=== PATIENT | male | born 1945 | race Caucasian/White ===

== ENCOUNTER → 2017-04-17 | Outpatient (CLI) | payer OTHER | LOC: CAT 12:55 | DX: N28.1 Cyst of kidney, acquired (principal) ==

== ENCOUNTER → 2018-09-18 | Outpatient (CLI) | payer OTHER ==
[~2018-09-18] VITALS: Ht 175.3 cm; Wt 77.1 kg
[~2018-09-18] MED LIST: CALCIUM + VITA1 EACH PO; CENTRUM SILVER1 EAC4 PO; GLUCOSAMIN-CHO1 EACH PO; IBUPROFEN 400400 M2 PO; NORVASC2.5 MG PO; PROTONIX 20 MG20 MG PO
[2018-09-18 12:12] VITALS: BP 160/87
[2018-09-18 12:23] LABS: HEMATOCRIT 41.9 % (42.0-52.0); HEMOGLOBIN 14.4 gm/dL (14.0-18.0); MCH 32.6 pg (26.0-34.0); MCHC 34.5 g/dL (28.0-37.0); MCV 94.6 fL (80.0-100.0); RBC 4.43 mil/uL (4.50-6.00); RDW 13.8 % (10.5-14.5)
[2018-09-18 12:32] LABS: CALCIUM 9.6 mg/dL (8.5-10.1); CREATININE 0.9 mg/dL (0.7-1.3); POTASSIUM 4.5 mmol/L (3.5-5.1)
== END | disposition home or self-care (01) ==
LOC: SPEC 11:44
PROVIDERS: Nuclear Medicine Nuclear Cardiology
DX: K55.1 Chronic vascular disorders of intestine (principal); I70.1 Atherosclerosis of renal artery; I73.9 Peripheral vascular disease, unspecified; I10 Essential (primary) hypertension; G47.33 Obstructive sleep apnea (adult) (pediatric); K86.1 Other chronic pancreatitis; N40.0 Benign prostatic hyperplasia without lower urinary tract symptoms; K21.9 Gastro-esophageal reflux disease without esophagitis; Z98.890 Other specified postprocedural states; Z90.49 Acquired absence of other specified parts of digestive tract; Z96.641 Presence of right artificial hip joint; Z79.899 Other long term (current) drug therapy; Z80.3 Family history of malignant neoplasm of breast; Z80.42 Family history of malignant neoplasm of prostate; Z80.8 Family history of malignant neoplasm of other organs or systems

== ENCOUNTER 2018-10-13 13:09 | Emergency (ER) | payer OTHER ==
[~2018-10-13] VITALS: Ht 172.7 cm; Wt 77.1 kg
[2018-10-13 15:08] LABS: ABSOLUTE NEUTROPHILS 3.7 thou/uL (1.4-8.2); BASOPHILS 0.6 % (0.0-2.0); EOSINOPHILS 1.7 % (0.0-3.0); HEMATOCRIT 36.1 % (42.0-52.0); HEMOGLOBIN 12.4 gm/dL (14.0-18.0); LYMPHOCYTES 21.4 % (24.0-44.0); MCH 32.4 pg (26.0-34.0); MCHC 34.2 g/dL (28.0-37.0); MCV 94.5 fL (80.0-100.0); MONOCYTES 8.5 % (1.0-8.0); PLATELET COUNT 192 thou/uL (150-400); POLYS 67.8 % (36.0-66.0); RBC 3.82 mil/uL (4.50-6.00); RDW 13.7 % (10.5-14.5); WBC 5.4 thou/uL (4.0-11.0)
[2018-10-13 15:14] LABS: ANION GAP 8 mmol/L (7-16); BUN 13 mg/dL (7-18); CALCIUM 8.8 mg/dL (8.5-10.1); CHLORIDE 103 mmol/L (98-107); CO2 29 mmol/L (21-32); CREATININE 0.8 mg/dL (0.7-1.3); GLUCOSE 98 mg/dL (74-106); POTASSIUM 3.8 mmol/L (3.5-5.1); SODIUM 140 mmol/L (136-145)
[2018-10-13 15:24] LABS: DIRECT BILIRUBIN 0.2 mg/dL (<0.1-0.3); SGOT 25 U/L (15-37); SGPT 31 U/L (30-65); TOTAL BILIRUBIN 0.6 mg/dL (<0.1-1.0); TOTAL PROTEIN 6.9 g/dL (6.4-8.2); TROPONIN-I <0.06 ng/mL (<0.06)
[2018-10-13 17:17] LABS: URINE BILIRUBIN NEGATIVE (Negative); URINE BLOOD NEGATIVE (Negative); URINE CLARITY CLEAR; URINE COLOR YELLOW; URINE GLUCOSE-RANDOM* NEGATIVE (Negative); URINE KETONES NEGATIVE (Negative); URINE LEUKOCYTES-REFLEX NEGATIVE (Negative); URINE NITRITE-REFLEX NEGATIVE (Negative); URINE PROTEIN (DIPSTICK) NEGATIVE (Negative); URINE UROBILINOGEN 0.2 E.U./dl (0.2-1.0)
[2018-10-13 18:00] VITALS: BP 151/84
--- NOTE | 2018-10-14 10:43 | EKG ---
[place] [address] [employer] [place] [address] ELECTROCARDIOGRAM REPORT Name: MONIKA HALL Room #: [facility] Pita#: [id number] Admission: 10/13/18 Attend Phys: Discharge: 10/13/18 Date of : 43 Report #: [id number] THIS REPORT FOR: //name// [facility] ED Test Date: 2018-10-13 Test Time: 13:19:32 Pat Name: MONIKA HALL Department: Room: Gender: Bingo Caller: [facility] : 1945 Requested By: Shahana Shoemaker Order Number: [id number] MD: Elier Burton Measurements Intervals [place] Rate: 60 P: -24 OK: 135 QRS: -5 QRSD: 104 T: -8 QT: 414 QTc: 414 Interpretive Statements Sinus arrhythmia Ventricular premature complex Compared to ECG 10/28/2005 11:24:27 Ventricular premature complex(es) now present Electronically Signed On 10-14-2018 10:43:32 CDT by Elier Burton [email or web address] <ELECTRONICALLY SIGNED> By: Elier Burton MD, [facility] 10/14/18 1043 1319 18 Elier Burton MD, FACC /EPI
== END 2018-10-13 18:05 | disposition home or self-care (01) ==
LOC: ER 13:09
PROVIDERS: Emergency Medicine
DX: R55 Syncope and collapse (principal); R53.1 Weakness; I10 Essential (primary) hypertension; G47.33 Obstructive sleep apnea (adult) (pediatric)

== ENCOUNTER → 2018-10-18 | Outpatient (CLI) | payer OTHER | LOC: CAT 11:14 | DX: R42 Dizziness and giddiness (principal); R55 Syncope and collapse; R51 Headache ==

== ENCOUNTER → 2018-12-20 | Outpatient (CLI) | payer OTHER | LOC: MRI 13:26 | DX: M50.11 Cervical disc disorder with radiculopathy, high cervical region (principal); M46.02 Spinal enthesopathy, cervical region; M12.88 Other specific arthropathies, not elsewhere classified, other specified site; M48.02 Spinal stenosis, cervical region; M43.22 Fusion of spine, cervical region ==

== ENCOUNTER → 2020-05-19 | Outpatient (CLI) | payer OTHER | LOC: SJCVCIMAG 08:43 → SJCVC 08:43 | PROVIDERS: ATTEND Internal Medicine | DX: I08.8 Other rheumatic multiple valve diseases (principal); I27.20 Pulmonary hypertension, unspecified; I71.2 Thoracic aortic aneurysm, without rupture; I11.9 Hypertensive heart disease without heart failure; K21.9 Gastro-esophageal reflux disease without esophagitis; Z87.891 Personal history of nicotine dependence; Z79.899 Other long term (current) drug therapy ==

== ENCOUNTER → 2020-07-21 | Outpatient (CLI) | payer OTHER | LOC: SJCVC 10:13 | PROVIDERS: ATTEND Internal Medicine | DX: I10 Essential (primary) hypertension (principal); N40.0 Benign prostatic hyperplasia without lower urinary tract symptoms; K21.9 Gastro-esophageal reflux disease without esophagitis; G47.33 Obstructive sleep apnea (adult) (pediatric); Z87.891 Personal history of nicotine dependence; Z72.89 Other problems related to lifestyle; Z79.899 Other long term (current) drug therapy ==

== ENCOUNTER → 2020-08-27 | Outpatient (CLI) | payer OTHER | LOC: RAD 15:55 | PROVIDERS: ATTEND Family Medicine | DX: I77.810 Thoracic aortic ectasia (principal); I51.7 Cardiomegaly; R53.83 Other fatigue ==

== ENCOUNTER → 2020-09-01 | Outpatient (CLI) | payer OTHER | LOC: SJCVC 12:54 | PROVIDERS: ATTEND Internal Medicine | DX: R00.2 Palpitations (principal); I77.819 Aortic ectasia, unspecified site; I47.1 Supraventricular tachycardia; N40.0 Benign prostatic hyperplasia without lower urinary tract symptoms; I10 Essential (primary) hypertension; K21.9 Gastro-esophageal reflux disease without esophagitis; G47.33 Obstructive sleep apnea (adult) (pediatric); Z87.891 Personal history of nicotine dependence; Z72.89 Other problems related to lifestyle; Z79.899 Other long term (current) drug therapy ==

== ENCOUNTER → 2020-10-05 | Outpatient (CLI) | payer OTHER | LOC: SJCVC 09:08 | PROVIDERS: ATTEND Internal Medicine | DX: I10 Essential (primary) hypertension (principal); R00.2 Palpitations; I77.89 Other specified disorders of arteries and arterioles; I47.1 Supraventricular tachycardia; K21.9 Gastro-esophageal reflux disease without esophagitis; N40.0 Benign prostatic hyperplasia without lower urinary tract symptoms; G47.33 Obstructive sleep apnea (adult) (pediatric); Z79.899 Other long term (current) drug therapy; Z87.891 Personal history of nicotine dependence ==

== ENCOUNTER → 2020-11-18 | Outpatient (CLI) | payer OTHER | LOC: SJCVC 15:14 | PROVIDERS: ATTEND Internal Medicine | DX: R94.31 Abnormal electrocardiogram [ECG] [EKG] (principal); R00.1 Bradycardia, unspecified; R00.2 Palpitations; I10 Essential (primary) hypertension; K21.9 Gastro-esophageal reflux disease without esophagitis; G47.33 Obstructive sleep apnea (adult) (pediatric); Z79.899 Other long term (current) drug therapy; Z72.89 Other problems related to lifestyle; Z87.891 Personal history of nicotine dependence ==

== ENCOUNTER → 2020-12-09 | Outpatient (CLI) | payer OTHER | LOC: SJCVC 10:54 | PROVIDERS: ATTEND Internal Medicine | DX: R06.00 Dyspnea, unspecified (principal); K40.21 Bilateral inguinal hernia, without obstruction or gangrene, recurrent; N40.0 Benign prostatic hyperplasia without lower urinary tract symptoms; K21.9 Gastro-esophageal reflux disease without esophagitis; I10 Essential (primary) hypertension; G47.33 Obstructive sleep apnea (adult) (pediatric); E73.9 Lactose intolerance, unspecified; K86.2 Cyst of pancreas; Z87.891 Personal history of nicotine dependence; Z72.89 Other problems related to lifestyle; Z79.899 Other long term (current) drug therapy ==

== ENCOUNTER → 2020-12-21 | Outpatient (CLI) | payer OTHER | LOC: SJCVCIMAG 07:35 | PROVIDERS: ATTEND Internal Medicine | DX: I08.2 Rheumatic disorders of both aortic and tricuspid valves (principal); I49.3 Ventricular premature depolarization; R06.00 Dyspnea, unspecified; R94.31 Abnormal electrocardiogram [ECG] [EKG]; R00.2 Palpitations; I47.1 Supraventricular tachycardia; K40.91 Unilateral inguinal hernia, without obstruction or gangrene, recurrent; N40.0 Benign prostatic hyperplasia without lower urinary tract symptoms; K21.9 Gastro-esophageal reflux disease without esophagitis; I10 Essential (primary) hypertension; G47.33 Obstructive sleep apnea (adult) (pediatric); K86.2 Cyst of pancreas; Z87.891 Personal history of nicotine dependence; Z72.89 Other problems related to lifestyle; Z79.899 Other long term (current) drug therapy ==

== ENCOUNTER → 2021-01-11 | Outpatient (CLI) | payer OTHER ==
--- NOTE | 2021-01-24 16:32 | PFR/MVV ---
[facility] [place] [address] PULMONARY FUNCTION MVV/REPORT Name: MONIKA HALL Room #: [facility]#: [id number] Admission: 01/11/21 Attend Phys: Karthik Medina MD, [facility] Discharge: Date of : 43 Report #: [id number] THIS REPORT FOR: //name// >> SPIROMETRY: (BTPS) Height: 69.0 in cm Weight: 183 lbs kg Exam Date: 01/11/21 PRE-RX POST-RX PRED BEST %PRED BEST %PRED %CHG FVC LITERS . 4.07 . 4.99 . 123 . 5.10 . 125 . 2 FEV1 LITERS . 2.66 . 3.12 . 117 . 3.27 . 123 . 5 FEV1/FVC % . 67 . 62 . 93 . 64 . 95 . 3 YUA61-54% L/Sec . 2.34 . 1.35 . 58 . 1.50 . 64 . 11 PEF L/SEC . 7.82 . 6.96 . 89 . 8.34 . 107 . 20 FEF50/FIF50 UNITLESS . 3.65 . 2.07 . 57 . 2.37 . 65 . 15 MVV L/Min . 117 . . f 1/Min . . . >> LUNG VOLUMES: (BTPS) PRE-RX POST-RX PRED AVG %PRED AVG %PRED %CHG VC Liters . 4.07 . 5.34 . 131 . . . TLC Liters . 6.18 . 7.60 . 123 . . . RV Liters . 2.58 . 2.26 . 88 . . . RV/TLC % . 43 . 30 . 70 . . . FRC PL Liters . 3.54 . 4.35 . 123 . . . FRC N2 Liters . 3.54 . . . . . ERV Liters . 1.39 . . . . . IC Liters . 2.79 . 3.25 . 117 . . . >> DIFFUSION: DLCO ml/Min/mmHg . 19.5 . 27.8 . 142 . . . DL [place] ml/Min/mmHg . 19.5 . 27.8 . 142 . . . DLCO/VA ml/Min/mmHg . 3.40 . 4.45 . 131 . . . VA Liters . . 6.25 . . . . COMMENTS: COMMENTS: >> RESISTANCE: [facility] [address] [place] [address] PULMONARY FUNCTION MVV/REPORT Name: MONIKA HALL Room #: [facility]#: [id number] Admission: 01/11/21 Attend Phys: Karthik Medina MD, [facility] Discharge: Date of : 43 Report #: [id number] PRE-RX PRED AVG %PRED Raw Total cmH20/L/Sec . . 2.41 . Raw Insp cmH20/L/Sec . . 3.67 . Raw Exp cmH20/L/Sec . . 2.50 . Raw cmH20/L/Sec . 1.27 . 1.41 . 111 Gaw L/Sec/cmH20 . 0.850 . 0.709 . 83 sRaw cmH20 Sec . 4.50 . 6.12 . 136 sGaw l/cmH20 Sec . 0.222 . 0.163 . 73 Vtq Liters . . 4.34 . # = OUTSIDE 95% CONFIDENCE INTERVAL CALIBRATION: PRED: 3.00 ACTUAL: EXP 3.01 INSP 3.02 [facility]04-4 >> INTERPRETATION/IMPRESSION: DATE OF SERVICE: 01/11/2021 PULMONARY FUNCTION STUDIES: FEV1 is 3.12 liters (117% predicted), FVC is 2.499 liters (123% predicted), FEV1/FVC ratio is 62%. There is no significant response to bronchodilator therapy. Total lung capacity is 7.60 liters (123% predicted). RV is 2.26 liters (88% predicted). Diffusing capacity is 142%. FEV1/FVC ratio is reduced suggestive of an obstructive airflow defect; however, this is likely a physiologic variant. FEV1/FVC ratio percentages are greater than 110% respectively and again likely physiologic variant. Total lung capacity is normal. IC to ERV ratio is normal. Residual volume is normal. Diffusing capacity is increased. IMPRESSION: Pulmonary function studies are normal. <ELECTRONICALLY SIGNED> By: Alfonso Díaz MD 01/24/21 1632 Alfonso Díaz MD /nt
== END ==
LOC: PUL 01-06 14:04
PROVIDERS: ATTEND Internal Medicine
DX: R06.00 Dyspnea, unspecified (principal); Z20.822 Contact with and (suspected) exposure to COVID-19

== ENCOUNTER → 2021-01-19 | Outpatient (CLI) | payer OTHER | LOC: SJCVC 10:21 | PROVIDERS: ATTEND Internal Medicine | DX: R06.02 Shortness of breath (principal); K40.20 Bilateral inguinal hernia, without obstruction or gangrene, not specified as recurrent; N40.0 Benign prostatic hyperplasia without lower urinary tract symptoms; K21.9 Gastro-esophageal reflux disease without esophagitis; G47.33 Obstructive sleep apnea (adult) (pediatric); M48.061 Spinal stenosis, lumbar region without neurogenic claudication; E73.9 Lactose intolerance, unspecified; Z87.891 Personal history of nicotine dependence; Z79.82 Long term (current) use of aspirin; Z79.899 Other long term (current) drug therapy ==

== ENCOUNTER → 2021-02-16 | Outpatient (CLI) | payer OTHER | LOC: SJCVC 09:54 | PROVIDERS: ATTEND Internal Medicine | DX: R06.02 Shortness of breath (principal); I47.1 Supraventricular tachycardia; I10 Essential (primary) hypertension; K21.9 Gastro-esophageal reflux disease without esophagitis; G47.33 Obstructive sleep apnea (adult) (pediatric); K86.1 Other chronic pancreatitis; Z79.899 Other long term (current) drug therapy; Z72.89 Other problems related to lifestyle; Z87.891 Personal history of nicotine dependence ==